=== PATIENT | female | born 1970 | race Two or more races ===

== ENCOUNTER 2020-06-30 08:40 | Outpatient (CLI) | payer OTHER | END 2020-06-30 09:08 | disposition home or self-care (01) | LOC: NUCLEAR 08:40 | PROVIDERS: ATTEND Internal Medicine | DX: E04.1 Nontoxic single thyroid nodule (principal); E78.2 Mixed hyperlipidemia; I10 Essential (primary) hypertension | CPT/HCPCS: 78012; A9531 ==

== ENCOUNTER 2020-07-01 09:21 | Outpatient (CLI) | payer OTHER | END 2020-07-01 09:36 | disposition home or self-care (01) | LOC: NUCLEAR 09:21 | PROVIDERS: ATTEND Internal Medicine | DX: E04.1 Nontoxic single thyroid nodule (principal); E78.2 Mixed hyperlipidemia; I10 Essential (primary) hypertension | CPT/HCPCS: 78013; A9512 ==

== ENCOUNTER 2020-12-12 08:23 | Emergency (ER) | payer OTHER ==
[~2020-12-12] VITALS: Ht 162.6 cm; Wt 117.5 kg
[2020-12-12] MEDS ORDERED: LOSARTAN-HCTZ1 EACH (08:52)
[2020-12-12] MEDS ORDERED: LEVO-T25 MCG (08:52)
[2020-12-12] MEDS ORDERED: KETO10TA2 PO (11:08)
[2020-12-12] MEDS ORDERED: NORFLEX100MG PO (11:08)
== END 2020-12-12 11:11 | disposition home or self-care (01) ==
LOC: ER 08:23
DX: M25.511 Pain in right shoulder (principal)

== ENCOUNTER 2021-07-28 07:57 | Outpatient (CLI) | payer OTHER ==
[~2021-07-28 07:57] MED LIST: KETO10TA2 PO; LEVO-T25 MCG; LOSARTAN-HCTZ1 EACH; NORFLEX100MG PO
== END 2021-07-28 08:15 | disposition home or self-care (01) ==
LOC: MAMO-SONO 07:57
PROVIDERS: ATTEND Internal Medicine
DX: E04.2 Nontoxic multinodular goiter (principal); N60.11 Diffuse cystic mastopathy of right breast; N60.12 Diffuse cystic mastopathy of left breast; Z13.21 Encounter for screening for nutritional disorder; R10.2 Pelvic and perineal pain; N91.4 Secondary oligomenorrhea

== ENCOUNTER 2022-09-07 12:05 | Outpatient (CLI) | payer OTHER | END 2022-09-07 12:19 | disposition home or self-care (01) | LOC: MAMO-SONO 12:05 | PROVIDERS: ATTEND Internal Medicine | DX: Z12.31 Encounter for screening mammogram for malignant neoplasm of breast (principal); N64.4 Mastodynia; N60.11 Diffuse cystic mastopathy of right breast; M54.2 Cervicalgia; M54.9 Dorsalgia, unspecified ==

== ENCOUNTER 2023-04-17 09:40 | Outpatient (CLI) | payer OTHER | END 2023-04-17 10:01 | disposition home or self-care (01) | LOC: SONOGRAMA 09:40 | PROVIDERS: ATTEND Internal Medicine | DX: E04.2 Nontoxic multinodular goiter (principal) ==

== ENCOUNTER 2023-07-14 21:52 | Emergency (ER) | payer OTHER ==
[~2023-07-14] VITALS: Ht 162.6 cm; Wt 108.4 kg
[2023-07-15 00:15] LABS: HEMATOCRIT 39.3 % (36.0-45.00); HEMOGLOBIN 13.2 g/dL (12.0-15.00); MEAN CELL VOLUME 82.2 fL (80.00-100.00); MEAN CORPUSCULAR HEMOGLOBIN 27.5 pg (27.00-32.0); MEAN CORPUSCULAR HGB CONC 33.5 g/dl (32.0-36.0); PLATELET COUNT 238 K/uL (150-450); RED BLOOD COUNT 4.78 M/uL (4.00-6.00); RED CELL DISTRIBUTION WIDTH 14.2 % (11.5-14.5)
[2023-07-15 00:16] LABS: PH,URINE 5.5 (5.0-8.0); URINE APPEARANCE Cloudy; URINE BILIRRUBIN Negative (NEGATIVE); URINE BLOOD Negative; URINE COLOR Yellow; URINE GLUCOSE Negative (NEGATIVE); URINE LEUKOCYTE Large; URINE NITRATE Negative; URINE PROTEIN Negative (NEGATIVE); URINE UROBILINOGEN 0.2 E.U./dl
[2023-07-15 00:20] LABS: URINE BACTERIA 5665.9 uL (0.0-1933); URINE EPITHELIAL CELLS 32.1 uL (0.0-38.8); URINE RBC 18.3 uL (0.0-20.8); URINE WBC 834.2 uL (0.0-23.2)
[2023-07-15 00:40] LABS: CALCIUM 8.8 mg/dL (8.5-10.1); CREATININE SERUM 0.78 mg/dL (0.55-1.02); GFR 76.96; POTASSIUM 3.8 mEq/L (3.5-5.1)
== END 2023-07-15 01:32 | disposition home or self-care (01) ==
LOC: ER 21:52
PROVIDERS: General Practice
DX: R53.81 Other malaise (principal); I10 Essential (primary) hypertension; R50.9 Fever, unspecified; N39.0 Urinary tract infection, site not specified; Z20.822 Contact with and (suspected) exposure to COVID-19

== ENCOUNTER 2024-01-22 11:19 | Outpatient (CLI) | payer OTHER ==
[~2024-01-22 11:19] MED LIST changes: +VALSARTAN-HCTZ1 EAC1 PO
== END 2024-01-22 11:28 | disposition home or self-care (01) ==
LOC: MAMO-SONO 11:19
PROVIDERS: ATTEND Internal Medicine
DX: N64.4 Mastodynia (principal); R92.8 Other abnormal and inconclusive findings on diagnostic imaging of breast; M15.0 Primary generalized (osteo)arthritis

== ENCOUNTER 2025-05-26 08:52 | Outpatient (CLI) | payer OTHER | END 2025-05-26 09:03 | disposition home or self-care (01) | LOC: SONOGRAMA 08:52 | PROVIDERS: ATTEND Internal Medicine | DX: N64.4 Mastodynia (principal); R92.8 Other abnormal and inconclusive findings on diagnostic imaging of breast ==